=== PATIENT | male | born 1990 | race Caucasian/White ===

== ENCOUNTER 2019-03-01 19:14 | Emergency (ER) | payer OTHER, SELFPAY ==
[2019-03-01 19:22] VITALS: BP 146/69; PULSE 79; RESP 16; TEMP 36.8; O2SAT 97
--- NOTE | 2019-03-01 20:40 | ED.GENADUL_ITS ---
Discharge Plan Disposition Patient Disposition: HOME Condition: Good Discharge Details Chief Complaint: Laceration Clinical Impression: Laceration of calf Primary Care Provider: None,None ED Provider: Emil Alarcon Home Meds and New Rx's Prescriptions: No Action acetaminophen [Tylenol] 325 MG tablet 650 mg PO Q4H PRN PRNQty: 30 RF: 0 ibuprofen 200 MG tablet 600 mg PO Q6H PRN PRNQty: 30 RF: 0 Discharge Instructions Instructions: Care For Your Stitches (ED), Laceration (ED) Additional Instructions: Please leave the dressing on for 24 hours, then you may remove and begin cleaning the wound at least twice a day with soap and water. Continue to apply antibiotic ointment. Do not directly soak the area. Watch for any signs of infection and return if any increasing redness, swelling, pain, drainage. Please return in 7 to 10 days for suture removal. If you notice any worsening of your symptoms, or any new symptoms such as vomiting, diarrhea, fever, chills, shortness of breath, chest pain, numbness, weakness, or fainting , please return immediately to the emergency department for reevaluation. Please follow up with your primary care provider as soon as possible for reassessment and reevaluation. As always, it was a pleasure participating in your medical care today. Referrals: Dionte Bustillos RN [Emergency Nurse] - Medical Decision Making This is a very pleasant 29-year-old male no past medical history was tetanus is not up-to-date who presents with a laceration to his right calf after cutting it on brand-new clean sheet-metal. Tetanus is updated here. Exam demonstrates laceration involving the dermis epidermis and subcutaneous layer being isolated to the subcutaneous fat. No evidence of tendon involvement. Neurovascular exam is normal aside for slight decrease in sensation roughly up to 1 cm distal to the laceration site. No other neurovascular abnormalities. The area was anesthetized with image scientist with epi, he was extensively scrubbed and irrigated with chlorhexidine scrub hours, and normal saline. With copious amounts of normal saline being utilized, the wound was appropriately cleaned, after this he was reassessed, no evidence of involvement of the deep tissue structures. One Monocryl suture was placed to stop a small bleeder, to Vicryl sutures were placed for subcutaneous reapproximation, and then 8 subsequent simple interrupted Ethilon sutures were placed for cutaneous closure. Patient tolerated this all very well. Dermabond was then placed over top of all of it. We discussed red flags for which to return, suture discharge instructions, the importance of keeping the wound clean. I have extensively reviewed the treat ment plan and discharge instructions with the patient and their family. I have addressed all patient concerns at this time. The patient and family was made aware of what symptoms to monitor for that would warrant a return to the emergency department. Discussed the plan with the patient and family, they demonstrate verbal understanding and agreement with our assessment and plan at this time. HPI General Date/Time Provider Initiated Documentation: 03/01/19 20:04 . HPI Narrative: This is a pleasant 29-year-old male whose tetanus is not up-to-date with no significant past medical history who presents for evaluation of a laceration to his right calf. 4 hours ago he slipped on some metal, cut his posterior calf on this. He has been keeping it bandaged since then, unfortunately is continued to bleed. He does admit to slight tingling just distal to the laceration site. He denies any other numbness tingling or weakness otherwise. He has had no significant pain with walking. He denies any other modifying factors. Of note the metal was brand-new metal, completely clean with no rest. He was a solid sheet of metal there were no barbs or other components. Related Data Home Medications Medication Instructions Recorded Confirmed acetaminophen [Tylenol] 650 mg PO Q4H PRN PRN #30 tablet 05/25/17 03/01/19 ibuprofen 600 mg PO Q6H PRN PRN #30 tablet 05/25/17 03/01/19 Previous Rx's Medication Instructions Recorded acetaminophen [Tylenol] 650 mg PO Q4H PRN PRN #30 tablet 05/25/17 ibuprofen 600 mg PO Q6H PRN PRN #30 tablet 05/25/17 Allergies Allergy/AdvReac Type Severity Reaction Status Date / Time amoxicillin trihydrate AdvReac Nausea Unverified 03/01/19 19:24 [From Augmentin] potassium clavulanate AdvReac Nausea Unverified 03/01/19 19:24 [From Augmentin] General Stated Complaint: Laceration CHARLY: 4 Review of Systems Review of Systems All systems reviewed & are unremarkable except as noted in HPI and below PFSH Medical History (Updated 03/01/19 @ 19:25 by Kayla Link) High blood pressure (Chronic) Surgical History (Updated 05/31/17 @ 15:09 by Eleni Paz) Appendectomy (05/24/17) Social History Smoking/Tobacco Use Status: Current every day Tobacco Type: cigarettes Alcohol Intake: current Alcohol Intake frequency: 0-2 drinks per day Alcohol type: beer Drug use: Never Substance use type: does not use Do you feel safe in your relationship?: Yes Additional Social history: pt is not alone to assess privately Exam Narrative Exam Narrative: 1.Const: Well-nourished, Well-developed, appearing stated age 2.Eyes: PERRL, no conjunctival injection, and symmetrical lids. 3.ENT: Atraumatic external nose and ears. Moist MM. Neck: Symmetric, trachea midline, No thyromegaly. 4.CVS: +S1/S2, No murmurs or gallops. Peripheral pulses 2+ and equal in all extremities. Brisk capillary refill in all extremities. 5.RESP: Unlabored respiratory effort. Clear to auscultation bilaterally. No wheezes rales or rhonchi 6.GI: Soft, Nontender/Nondistended, No hepatosplenomegaly. No guarding or rebound. 7.MSK: Normocephalic/Atraumatic, Extremities w/o deformity or ttp No cyanosis or clubbing, Normal movement of all extremities. Patient able to flex and extend the foot without any difficulty. No evidence of disruption of the tendon for the gastrocnemius or the Achilles tendon. Normal muscle strength throughout. normal movements of the foot. Brisk capillary refill in all toes, her cells pedis posterior tibial pulse +2 bilaterally. Sensation minimally decreased just below the laceration site, however distal to that there are no evidence of decreased sensation. 8.Skin: Warm, Dry. No rashes or lesions. There is a 5 cm linear laceration to the posterior calf. No evidence of tendon or muscle involvement. No evidence of fascial involvement. 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 Sensation grossly intact, no focal neurologic deficits. 10.Psych: (AAO) x3. Appropriate mood and affect Course Vital Signs Temperature 36.8 C 03/01/19 19:22 Pulse 79 03/01/19 19:22 Respiratory Rate 16 03/01/19 19:22 Blood Pressure 146/69 H 03/01/19 19:22 Pulse Oximetry 97 03/01/19 19:22 Temperature 36.8 C 03/01/19 19:22 Temperature Source Skin 03/01/19 19:22 Pulse 79 03/01/19 19:22 Respiratory Rate 16 03/01/19 19:22 Respiratory Effort 03/01/19 19:26 Blood Pressure 146/69 H 03/01/19 19:22 Pulse Oximetry 97 03/01/19 19:22 Pain Level 6 03/01/19 19:22 Procedures Laceration Laceration 1: Site: lower extremity Side (If applicable): right Size (cm): 5 Description: linear Depth: simple, single layer Local Anesthetic: Lidocaine 1% and with Epi Amount of anesthesia used (mL): 10 Pre-repair: wound explored, irrigated extensively and deep structures intact Skin layer closed with: nylon Size (cm): 4-0 Number of sutures: 8 Technique: simple, interrupted Subcutaneous layer closed with: vicryl Size: 4-0 Number of sutures: 2 Technique: simple, interrupted Technique: other (Additionally a single 5-0 Monocryl suture was used to close off a small superficial bleeding blood vessel)
== END 2019-03-01 20:54 | disposition home or self-care (01) ==
PROVIDERS: Emergency Provider Student in an Organized Health Care Education/Training Program
DX: S81.811A Laceration without foreign body, right lower leg, initial encounter (principal); R20.2 Paresthesia of skin; W26.8XXA Contact with other sharp object(s), not elsewhere classified, initial encounter; Y99.0 Civilian activity done for income or pay
CPT/HCPCS: 12032; 90471

== ENCOUNTER 2019-03-10 16:54 | Emergency (ER) | payer OTHER, SELFPAY ==
[2019-03-10 16:57] VITALS: BP 143/98; PULSE 85; RESP 16; TEMP 37; O2SAT 99
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
[2019-03-10 17:16] VITALS: BP 143/98; PULSE 85; RESP 16; TEMP 37; O2SAT 99
== END 2019-03-10 17:17 | disposition home or self-care (01) ==
LOC: ER 17:22
PROVIDERS: Emergency Provider Student in an Organized Health Care Education/Training Program
DX: S81.811D Laceration without foreign body, right lower leg, subsequent encounter (principal); W26.8XXD Contact with other sharp object(s), not elsewhere classified, subsequent encounter; L08.9 Local infection of the skin and subcutaneous tissue, unspecified; Y83.8 Other surgical procedures as the cause of abnormal reaction of the patient, or of later complication, without mention of misadventure at the time of the procedure; I10 Essential (primary) hypertension
CPT/HCPCS: 99283

== ENCOUNTER 2019-03-13 15:25 | Emergency (ER) | payer OTHER, SELFPAY ==
[2019-03-13 15:32] VITALS: BP 127/72; PULSE 83; RESP 16; TEMP 36.7; O2SAT 95
--- NOTE | 2019-03-13 15:42 | ED.GENADUL_ITS ---
Discharge Plan Disposition Patient Disposition: HOME Condition: Improving Discharge Details Chief Complaint: SutureRem Clinical Impression: Encounter for removal of sutures Primary Care Provider: None,None ED Provider: Christina Gomez Home Meds and New Rx's Prescriptions: Continued acetaminophen [Tylenol] 325 MG tablet 650 mg PO Q4H PRN PRNQty: 30 RF: 0 ibuprofen 200 MG tablet 600 mg PO Q6H PRN PRNQty: 30 RF: 0 cephalexin [Keflex] 500 mg capsule 500 mg PO QID 7 Days Qty: 28 RF: 0 Discharge Instructions Instructions: Laceration (ED) Additional Instructions: Keep wound clean, dry, covered. Tylenol and/or ibuprofen as needed for discomfort. Please continue to monitor for signs of infection getting redness, warmth, drainage, increased pain, fever/chills. If you develop the symptoms please begin Keflex as previously prescribed. If you develop new or worsening symptoms please seek care urgently once again. Medical Decision Making Patient is a 29-year-old male presents today with chief complaint suture removal. Sutures placed 2 weeks ago. Was seen again here 2 days ago at which time the wound had not healed centrally. The 3 central sutures were left in place. He was advised to be been taking Keflex. He reports he has not taken this medication. He does report that the erythema that had been noted 2 days ago has been improving. Is a small amount of erythema but no warmth or tenderness. No drainage. Wound appears to be healing nicely. The 3 central sutures were removed and the wound was reinforced with Steri-Strips and adhesive. I am concerned with with the patient does for work that he is at risk for this opening or becoming infected. He will keep wound covered. He is given strict return precautions. All questions and concerns were addressed and he is in agreement this plan. HPI General Mode of arrival: ambulatory . Date/Time Provider Initiated Documentation: 03/13/19 15:41 . Limitations to Documentation: no limitations . Information obtained by: patient and RN notes reviewed . History of Present Illness 29 year old M presents to the emergency department with the chief complaint of suture removal, with intensity rated at 1 (no pain at this time). and is localized to the right and lower extremity. Patient reports no radiation. Patient started experiencing this week(s) Patient notes no other symptoms.; denies fever/chills. Related Data Home Medications Medication Instructions Recorded Confirmed acetaminophen [Tylenol] 650 mg PO Q4H PRN PRN #30 tablet 05/25/17 03/01/19 ibuprofen 600 mg PO Q6H PRN PRN #30 tablet 05/25/17 03/01/19 cephalexin [Keflex] 500 mg PO QID 7 Days #28 cap 03/10/19 Previous Rx's Medication Instructions Recorded acetaminophen [Tylenol] 650 mg PO Q4H PRN PRN #30 tablet 05/25/17 ibuprofen 600 mg PO Q6H PRN PRN #30 tablet 05/25/17 cephalexin [Keflex] 500 mg PO QID 7 Days #28 cap 03/10/19 Allergies Allergy/AdvReac Type Severity Reaction Status Date / Time amoxicillin trihydrate AdvReac Nausea Unverified 03/01/19 19:24 [From Augmentin] potassium clavulanate AdvReac Nausea Unverified 03/01/19 19:24 [From Augmentin] General Stated Complaint: SutureRem CHARLY: 5 Review of Systems Constitutional Reports as per HPI, Denies chills, Denies fever(s) and Denies weakness Musculoskeletal Reports as per HPI and Denies tingling Integumentary/Breasts Reports as per HPI Neurologic Denies sensory deficit, Denies tingling and Denies weakness PFSH Medical History High blood pressure (Chronic) Surgical History Appendectomy (05/24/17) Social History Smoking/Tobacco Use Status: Current every day Tobacco Type: cigarettes Alcohol Intake: current Alcohol Intake frequency: 0-2 drinks per day Alcohol type: beer Drug use: Never Substance use type: does not use Do you feel safe in your relationship?: Yes Additional Social history: pt is not alone to assess privately Exam Const General: cooperative, healthy appearing, comfortable, no acute distress and well developed Nutritional Appearance: average body habitus and well nourished Orientation: alert and awake Resp Effort & Inspection: normal respiratory effort, able to speak in complete sentences and no respiratory distress Cardio Rate: regular rate Rhythm: regular rhythm Skin General skin exam: erythema (Small amount of erythema surrounding the wound) Trauma: laceration (Wound appears to be healing well to the right lateral calf. ) Neuro General: alert and awake Cognition: normal cognition Speech: speech normal Gait: normal gait Motor: muscle tone normal throughout Psych Appearance: grossly normal and well kempt Mental Status: mental status grossly normal Speech and Movement: speech and movement normal Course Vital Signs Temperature 36.7 C 03/13/19 15:32 Pulse 83 03/13/19 15:32 Respiratory Rate 16 03/13/19 15:32 Blood Pressure 127/72 03/13/19 15:32 Pulse Oximetry 95 03/13/19 15:32 Temperature 36.7 C 03/13/19 15:32 Temperature Source Skin 03/13/19 15:32 Pulse 83 03/13/19 15:32 Respiratory Rate 16 03/13/19 15:32 Blood Pressure 127/72 03/13/19 15:32 Blood Pressure Position Sitting 03/13/19 15:32 Pulse Oximetry 95 03/13/19 15:32 Oxygen Delivery Method Room Air 03/13/19 15:32 Oxygen Flow Rate 0 03/13/19 15:32
== END 2019-03-13 15:57 | disposition home or self-care (01) ==
PROVIDERS: Emergency Provider Physician Assistant
DX: S81.811D Laceration without foreign body, right lower leg, subsequent encounter (principal); W26.8XXD Contact with other sharp object(s), not elsewhere classified, subsequent encounter; Z48.02 Encounter for removal of sutures

== ENCOUNTER 2021-01-24 18:07 | Emergency (ER) | payer OTHER, SELFPAY ==
[2021-01-24 18:18] VITALS: BP 142/90; PULSE 80; RESP 20; TEMP 36.7; O2SAT 97
--- NOTE | 2021-01-24 18:45 | DI.CT_ITS ---
Exam(s) CT LUMBAR SPINE WO EXAM: CT LUMBAR SPINE WO CLINICAL HISTORY: pain radiating down left leg. TECHNIQUE: Imaging Protocol: Axial computed tomography images with coronal and sagittal reformatted images were created and reviewed CONTRAST MATERIAL: Intravenous: Omnipaque 350 Contrast volume:structured data in ml Contrast route:I V - Oral: yes / no COMPARISON: CT ABD PELVIS WITH CONTRAST from 05/24/2017 CT ABD PELVIS WITH CONTRAST from 05/24/2017 FINDINGS: Bones: The last intervertebral disc space is designated the L5/S1 level for the numbering purpose of this examination. The vertebral body heights are well maintained. Alignment is satisfactory. No frac ture is seen. T12-L1: No disc herniations or bulges are present. L1-2: No disc herniations or bulges are present. L2-3: No disc herniations or bulges are present. L3-4: No disc herniations or bulges are present. L4-5: There is posterior disc bulging. There is calcification at the margin of the disc. This appe ars unchanged when pre compared with previous abdomen and pelvic CT. This does cause some narrowing of the AP dimension of the central canal. There is neural foraminal encroachment bilaterally, more s evere on the left. L5-S1: No disc herniations or bulges are present. Soft Tissues: The visualized SI joints and sacrum are will maintained. The paraspinal soft tissues a re unremarkable. IMPRESSION: Stable appearance L4-5 disc bulging calcified posterior disc margin. Severe left neural foraminal na rrowing and moderate right neural foraminal narrowing. RADIATION DOSE DELIVERED: 743.04mGy.cm Total DLP DATA REPOSITORY: All CT scans at this facility are submitted to the National Radiology Data Registry (NRDR) Dose Index Registry (DIR) with the [employer] (A[employer]). RADIATION OPTIMIZATION: All CT scans at this facility use at least one of these dose optimization te chniques: automated exposure control; mA and/or kV adjustment per patient size (includes targeted exa ms where dose is matched to clinical indication); or iterative reconstruction.
--- NOTE | 2021-01-24 18:46 | ED.GENADUL_ITS ---
Discharge Plan Disposition Patient Disposition: HOME Condition: Stable Discharge Details Clinical Impression: Acute lumbar back pain, Sciatica Primary Care Provider: None,None ED Provider: Christina Gomez Home Meds and New Rx's Prescriptions: New diazepam [Valium] 5 mg tablet 5 mg PO TID PRN (Reason: muscle spasm) Qty: 10 RF: 0 Continued acetaminophen [Tylenol] 325 MG tablet 650 mg PO Q4H PRN PRNQty: 30 RF: 0 ibuprofen 200 MG tablet 600 mg PO Q6H PRN PRNQty: 30 RF: 0 naproxen sodium [Aleve] 220 mg Tablet 220 mg PO Q12H PRNRF: 0 Discharge Instructions Instructions: Diazepam (By mouth), Sciatica (ED), Low Back Strain (ED) Additional Instructions: Encourage hydration. Please encourage gentle stretching and range of motion. Avoid any heavy lifting. Please continue with Tylenol and/or ibuprofen as needed for discomfort. Please take as directed on the packaging. If this is unsuccessful at alleviating your discomfort, you may augment with the Valium as prescribed. This should help with muscle spasm. This is sedating and he should not drive a medication. Do not mix this with alcohol. You may also try topical options such as lidocaine patches. Physical therapy referral is attached. If you develop fever/chills, weakness, difficulty ambulating, change in bowel or bladder habits, sensation changes or other new/worsening symptoms please seek care urgently once again. Referral for local primary care has been sent. Stand Alone Forms: Physical Therapy Referral, Work Release Discharge Data Discharge Date/Time-TO BE ENTERED AT DEPARTURE: 01/24/21 21:15 Medical Decision Making Patient is an otherwise health 30 year old male presenting today with c/c of lumbar back pain. He states that he has known disc disease after injury 10-15 years ago. Reports intermittent pain that is not typically this severe. Has had increased pain x2 weeks. No difficulty with ambulation. Pain radiates down posterior aspect of the LLE to the bottom of the foot. Denies gonzalez ein bowel or bladder function. Denies IVDU, no fevers/chills. No recent trauma. Has intermittently beewn using tylenol or ibuprofen. Has used Flexeril in the past with questionable results. Has seen chiropracter x 3 since onset of his acute discomfort. On exam, patient appears nontoxic. He has full ROM of his lumbar spine. He is moving about hte room and stretcher without evidence of discomfort. Diffuse midline tenderness with no focal area of discomfort, no step off. Pain along left buttock. Palpation over htis area causes pain to radiate down the posterior aspect of the LLE. No saddle paresthesias. 5/5 strength in BLE. Reflexes intact. Abdomen benign. Patients exam is not consistent with cauda equina. However, with this recent change in pain that has been failing his ttypical attempts for pain management, plan for imaging. Will give tylenol, ibuprofen, lidoderm patch and flexeril. FINDINGS: Vertebrae: Alignment is normal. Vertebral body heights are maintained. No evidence of fracture. Discs/Spinal canal/Neural foramina: There are degenerative endplate changes seen at multiple levels, worst at L4-L5. There is some calcification seen related to a disc protrusion at L4-L5 which was present in 2017. Lack of intrathecal contrast limits further characterization. Left worse than right bony neural foraminal stenosis is seen. No bony neural foraminal stenosis at other levels. Soft tissues: Unremarkable. IMPRESSION: No evidence of acute osseous abnormality. Discussed these findings with the patient. He reports no change in pain management. We discussed other options. He would like to be able to drive his truck home and does not want anything stronger at this time. He has requested CT on disc for his chiropracter. He does not have a local PCP, I have asked care management to help arrange for prompt f/u. He and I discussed risks/benefits of Valium. He will be sent home to take this once he is not driving. Safe usage discussed. Will refer to PT as well. Return precautions discussed. Work note given at patients request. All of his quesitons and concerns were addressed, he is in agreement with this plan. HPI General Mode of arrival: ambulatory . Date/Time Provider Initiated Documentation: 01/24/21 18:32 . Limitations to Documentation: no limitations . Information obtained by: patient and RN notes reviewed . History of Present Illness 30 year old M presents to the emergency department with the chief complaint of lumbar back pain, described as severe, with intensity rated at 10. Quality is described as sharp, and is localized to the back. Patient extremity (LLE). Patient started experiencing this week(s) (acute exacerbation x 2 weeks) and it has been constant. Immobilization improves symptom(s), Movement worsens symptoms . Patient notes no other symptoms.. Patient did receive the following treatments prior to arrival, NSAID Related Data Home Medications Medication Instructions Recorded Confirmed acetaminophen [Tylenol] 650 mg PO Q4H PRN PRN #30 tablet 05/25/17 01/24/21 ibuprofen 600 mg PO Q6H PRN PRN #30 tablet 05/25/17 01/24/21 diazepam [Valium] 5 mg PO TID PRN #10 tab 01/24/21 naproxen sodium [Aleve] 220 mg PO Q12H PRN 01/24/21 01/24/21 Previous Rx's Medication Instructions Recorded acetaminophen [Tylenol] 650 mg PO Q4H PRN PRN #30 tablet 05/25/17 ibuprofen 600 mg PO Q6H PRN PRN #30 tablet 05/25/17 diazepam [Valium] 5 mg PO TID PRN #10 tab 01/24/21 Allergies Allergy/AdvReac Type Severity Reaction Status Date / Time amoxicillin trihydrate AdvReac Nausea Unverified 01/24/21 18:20 [From Augmentin] potassium clavulanate AdvReac Nausea Unverified 01/24/21 18:20 [From Augmentin] General Stated Complaint: Nk/Back Pain CHARLY: 3 Review of Systems Constitutional Constitutional: Reports as per HPI, Denies chills, Denies fatigue, Denies fever(s), Denies frequent falls and Denies headache(s) Eyes Eyes: Denies change in vision ENT Ears, Nose, Mouth, and Throat: Denies headache(s) Cardiovascular Cardiovascular: Denies chest pain, Denies dyspnea and Denies dyspnea on exertion Respiratory Respiratory: Denies cough, Denies dyspnea and Denies dyspnea on exertion Gastrointestinal Gastrointestinal: Denies abdominal pain, Denies change in bowel habits and Denies fecal incontinence Genitourinary Genitourinary: Reports as per HPI, Denies urinary hesitancy and Denies urinary incontinence Musculoskeletal Musculoskeletal: Reports as per HPI, Reports back pain, Denies muscle weakness, Denies numbness, Denies radiating pain into limb, Reports stiffness and Denies tingling Integumentary/Breasts Skin/Breast: Reports as per HPI and Denies rash Neurologic Neurologic: Reports as per HPI, Denies frequent falls, Denies headache(s), Denies localized weakness, Denies numbness, Denies radicular pain, Denies sensory deficit, Denies tingling and Denies paresthesias Endocrine Endocrine: Denies fatigue [facility] Medical History (Updated 01/24/21 @ 20:48 by ALIZA Strauss) High blood pressure Surgical History Appendectomy (05/24/17) Social History Smoking/Tobacco Use Status: Former Tobacco Use Smoking risk assessment performed?: Yes Alcohol Intake: current Alcohol Intake frequency: 0-2 drinks per day Alcohol type: beer Drug use: Never Substance use type: does not use Do you feel safe at home: Yes Do you feel safe in your relationship?: Yes Exam Const General: cooperative, healthy appearing, comfortable, no acute distress, well developed and well groomed Nutritional Appearance: well nourished and overweight Orientation: alert and awake Eyes General: appearance normal, both eyes and all related structures Neck Neck: normal visual inspection, full ROM, no lymphadenopathy and no meningeal signs Resp Effort & Inspection: normal respiratory effort and able to speak in complete sentences Auscultation: clear to auscultation bilaterally, no rales, no rhonchi and no wheezes Cardio Rate: regular rate Rhythm: regular rhythm Heart Sounds: S1 normal and S2 normal GI Inspection: normal to inspection Palpation: soft, no hernias, no masses and nontender Back/Spine/Pelvis Back: no CVA tenderness Cervical Spine: normal cervical lordosis, cervical ROM normal, No cervical muscular tenderness, No pain with cervical ROM, No cervical spasm, No cervical spinal tenderness and No step off deformity Thoracic/Lumbar Spine: thoracic and lumbar spine normal to inspection, thoraco- lumbar ROM normal, straight leg raise negative bilaterally, No mass, No pain with thoraco-lumbar ROM, paraspinal tenderness (left side, along lumbar spine), No thoraco-lumbar spasm, No thoracic spinal tenderness and lumbar spinal tenderness (diffuse discomfort) Pelvis: no buttock ecchymosis, buttock tenderness on the left and no buttock swelling Skin General skin exam: no rashes or lesions noted Neuro General: patient alert and patient awake Cognition: normal cognition Speech: speech normal Gait: normal gait Motor: muscle tone normal throughout, strength 5/5 throughout, no movement abnormalities noted and no fasciculations Sensory Exam: no sensory deficits noted (no saddle paresthesias) DTR's: Rt Patellar: 2+, Lt Patellar: 2+, Rt Ankle: 2+ and Lt Ankle: 2+ Extrem General: normal to inspection, full ROM, capillary refill normal, no joint enlargement, no pedal edema, no calf tenderness and normal gait Psych Appearance: grossly normal and well kempt Mental Status: mental status grossly normal Speech and Movement: speech and movement normal Course Vital Signs Vital signs: Vital Signs Temperature 36.7 C 01/24/21 18:18 Pulse 80 01/24/21 18:18 Respiratory Rate 20 01/24/21 18:18 Blood Pressure 142/90 H 01/24/21 18:18 Pulse Oximetry 97 01/24/21 18:18 Temperature 36.7 C 01/24/21 18:18 Temperature Source Skin 01/24/21 18:18 Pulse 80 01/24/21 18:18 Respiratory Rate 20 01/24/21 18:18 Respiratory Effort Non-Labored 01/24/21 18:21 Blood Pressure 142/90 H 01/24/21 18:18 Blood Pressure Position Sitting 01/24/21 18:18 Pulse Oximetry 97 01/24/21 18:18 Oxygen Delivery Method Room Air 01/24/21 18:18 Oxygen Flow Rate 0 01/24/21 18:18 Pain Level 10 01/24/21 18:18
[2021-01-24] MEDS: Acetaminophen 500 MG TAB 1000 MG PO (19:14)
[2021-01-24] MEDS: Lidocaine 5% Patch 1 PATCH TP (19:14)
[2021-01-24] MEDS: Cyclobenzaprine 10 MG TAB PO (19:14)
[2021-01-24] MEDS: Ibuprofen 600 MG TAB PO (19:14)
--- NOTE | 2021-01-24 19:53 | DI.VRAD_ITS ---
PROCEDURE INFORMATION: Exam: CT Lumbar Spine Without Contrast Exam date and time: 01/24/2021 7:01 PM Age: 30 years old Clinical indication: Low back pain; Patient HX: Pain radiating down left leg; Additional info: Known disc herniation TECHNIQUE: Imaging protocol: Computed tomography images of the lumbar spine without contrast. Radiation optimization: All CT scans at this facility use at least one of these dose optimization techniques: automated exposure control; mA and/or kV adjustment per patient size (includes targeted exams where dose is matched to clinical indication); or iterative reconstruction. COMPARISON: CT ABD PELVIS WITH CONTRAST 05/24/2017 12:37 PM FINDINGS: Vertebrae: Alignment is normal. Vertebral body heights are maintained. No evidence of fracture. Discs/Spinal canal/Neural foramina: There are degenerative endplate changes seen at multiple levels, worst at L4-L5. There is some calcification seen related to a disc protrusion at L4-L5 which was present in 2017. Lack of intrathecal contrast limits further characterization. Left worse than right bony neural foraminal stenosis is seen. No bony neural foraminal stenosis at other levels. Soft tissues: Unremarkable. IMPRESSION: No evidence of acute osseous abnormality. Dictated and Authenticated by: Willi Woodson MD. Ordering:LEWIS Vasquez MD
--- NOTE | 2021-01-24 20:55 | NUR.NOTE ---
Nursing Note: rteferal sent to [facility] for est pcp 01/24/21 for lower back pain
[2021-01-24] MEDS: diazePAM 5 MG TAB 10 MG PO (21:02)
[2021-01-24 21:05] VITALS: BP 148/85; PULSE 68; RESP 15; O2SAT 97
--- NOTE | 2021-01-25 14:14 | W.ED.FU ---
Patient called the ED stating that he does not have relief of his back pain after seen here in the ED last night. He was given a Valium prescription which he has been taking without relief. 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 Advised that he could return for a work note to remain at home and take his valium if desired but he declined. He is also taking Tylenol and Motrin without relief. He has an appointment with his PCP tomorrow at 9 AM. Patient was advised to return to the ED if he feels like his pain is not managed. He states he cannot return to the ED because he cannot pay to $3000 for 2 ED visits. Case discussed with patient's provider from ED visit Christina Gomez and she is in agreement with plan for a steroid prescription. A prescription for 20 mg prednisone taper for a total of 18 tabs sent electronically to his pharmacy. Patient advised to return here immediately with any concerns.
== END 2021-01-24 21:15 | disposition home or self-care (01) ==
PROVIDERS: Emergency Provider Physician Assistant
DX: M54.42 Lumbago with sciatica, left side (principal)
CPT/HCPCS: 99285; 72131; 99283

== ENCOUNTER 2021-07-21 16:58 | Outpatient (REF) | payer OTHER, SELFPAY ==
[2021-07-23 19:32] LABS: COVID-19 RT-PCR UVMMC Result Negative (Negative)
== END 2021-07-21 16:59 | disposition home or self-care (01) ==
LOC: LBN 16:58
PROVIDERS: PCP Family Medicine; Visit Provider Nurse Practitioner Adult Health
DX: J02.9 Acute pharyngitis, unspecified (principal); R59.9 Enlarged lymph nodes, unspecified; Z20.822 Contact with and (suspected) exposure to COVID-19
CPT/HCPCS: U0003; 87070

== ENCOUNTER 2021-08-09 14:38 | Outpatient (CLI) | payer OTHER, SELFPAY ==
--- NOTE | 2021-08-09 14:30 | RT.EKG_ITS ---
APPROVED REPORT Exam: Resting ECG Reason for Exam: chest pressure Patient Location: O HR:61 bpm ECG Measurements Heart Rate 61 AXIS [place] 162 P -7 QRSd 97 QRS -30 QT 384 T 24 QTc 387 Conclusion Sinus rhythm...normal P axis, V-rate 60- 99 Left axis deviation...QRS axis (-30,-90)
== END 2021-08-09 14:39 | disposition home or self-care (01) ==
LOC: DI.KIM 14:39
PROVIDERS: PCP Family Medicine; Visit Provider Nurse Practitioner
DX: R07.89 Other chest pain (principal); I44.4 Left anterior fascicular block
CPT/HCPCS: 93010